=== PATIENT | female | born 1945 | race Caucasian/White ===

== ENCOUNTER 2016-08-18 14:43 | Outpatient (CLI) | payer MEDICARE, OTHER | END 2016-08-18 14:44 | disposition home or self-care (01) | DX: G47.33 Obstructive sleep apnea (adult) (pediatric) (principal) | CPT/HCPCS: 99214; G0463 ==

== ENCOUNTER 2016-08-27 13:40 | Outpatient (CLI) | payer MEDICARE, OTHER | END 2016-08-27 13:41 | disposition home or self-care (01) | DX: Z12.31 Encounter for screening mammogram for malignant neoplasm of breast (principal) ==

== ENCOUNTER 2016-11-17 11:13 | Outpatient (CLI) | payer MEDICARE, OTHER | END 2016-11-17 11:14 | disposition home or self-care (01) | DX: G47.33 Obstructive sleep apnea (adult) (pediatric) (principal) | CPT/HCPCS: 99214; G0463 ==

== ENCOUNTER 2017-06-07 08:44 | Outpatient (CLI) | payer MEDICARE, OTHER | END 2017-06-07 08:45 | disposition home or self-care (01) | LOC: SC 08:44 | PROVIDERS: ATTEND Nurse Practitioner Family | DX: G47.33 Obstructive sleep apnea (adult) (pediatric) (principal); G47.00 Insomnia, unspecified | CPT/HCPCS: 99214; G0463; 99212 ==

== ENCOUNTER 2017-08-13 09:21 | Outpatient (CLI) | payer MEDICARE, OTHER ==
[2017-08-13 10:23] LABS: ALBUMIN 4.5 g/dL (3.2-5.5); ALBUMIN/GLOBULIN RATIO 1.5 (1.0-2.2); BILIRUBIN,TOTAL 0.5 mg/dL (0.2-1.0); CREATININE 0.6 mg/dL (0.4-1.0); TOTAL PROTEIN 7.5 g/dL (6.7-8.2)
[2017-08-14 13:46] LABS: HEPATITIS C ANTIBODY NON-REACTIVE (NON-REACTIVE)
--- NOTE | 2017-08-19 09:12 | DEXA Report ---
DATE OF SERVICE: 08/13/2017 DEXA SCAN: 08/13/2017 CLINICAL INDICATION: Postmenopausal. TECHNIQUE: Dual energy x-ray absorptiometry (DXA) was performed on a [employer] system. Regions measured are the AP spine, femoral neck, and, if needed, forearm. COMPARISON: None. In accordance with the International Society for Clinical Densitometry (ISCD) guidelines, data from previous exams may be reanalyzed using current recommendations and techniques. This is done to allow a more accurate basis for comparison with the current study. FINDINGS: The data for the lumbar spine is as follows: REGION BMD (g/cm/cm) T-SCORE Z-SCORE L1 0.932 -1.6 0.4 L2 0.956 -2.0 0.0 L3 0.942 -2.2 -0.1 L4 1.028 -1.4 0.6 TOTAL 0.969 -1.8 0.3 NOTE: All evaluable vertebrae are used for classification. The data for the hip is as follows: REGION BMD (g/cm/cm) T-SCORE Z-SCORE Neck 0.792 -1.8 0.2 TOTAL 0.834 -1.4 0.4 NOTE: The femoral neck or total proximal femur, whichever is lowest, is used for classification. IMPRESSION: THE WHO CLASSIFICATION BASED ON THE INTERNATIONAL REFERENCE STANDARD IS OSTEOPENIA. THE FRACTURE RISK IS INCREASED. RECOMMENDATION: Patients with diagnosis of osteoporosis or osteopenia should have regular bone mineral density assessment. For those eligible for Medicare, routine testing is allowed once every 2 years. Testing frequency can be increased for patients who have rapidly progressing disease or for those who are receiving medical therapy to restore bone mass. COMMENT: World Health Organization (WHO) definitions for osteoporosis and osteopenia: NORMAL BMD: T-score at 1.0 or higher, fracture risk is low. OSTEOPENIA BMD: T-score between 1.0 and -2.5, fracture risk is increased. OSTEOPOROSIS BMD: T-score at 2.5 or lower, fracture risk high. National Osteoporosis Foundation recommends 1. Obtain adequate dietary calcium (at least 1200 mg per day) and vitamin D (400 -800 international units per day). 2. Participate, as appropriate, in regular weightbearing and muscle- strengthening exercise. 3. Avoid tobacco use and reduce alcohol and caffeine intake. 4. For more detailed information see the website at www.NOF.org. TD: 08/13/2017 13:07 MTDNani
== END 2017-08-13 09:22 | disposition home or self-care (01) ==
LOC: DI 09:21
PROVIDERS: ATTEND Physician Assistant
DX: M81.0 Age-related osteoporosis without current pathological fracture (principal); Z78.0 Asymptomatic menopausal state
CPT/HCPCS: 36415; 77080; 80053; 86803

== ENCOUNTER 2018-08-03 10:56 | Outpatient (CLI) | payer MEDICARE, OTHER | END 2018-08-03 10:57 | disposition home or self-care (01) | LOC: SC 10:56 | PROVIDERS: ATTEND Nurse Practitioner Family | DX: G47.33 Obstructive sleep apnea (adult) (pediatric) (principal) | CPT/HCPCS: 99213; G0463; 99212 ==

== ENCOUNTER 2018-08-17 07:28 | Outpatient (CLI) | payer MEDICARE, OTHER ==
[2018-08-17 07:52] LABS: HGB - HEMOGLOBIN 13.2 g/dL (12.0-16.0); MEAN CORPUSCULAR HEMOGLOBIN 31.7 pg (27.0-31.0); MEAN CORPUSCULAR HGB CONC 33.9 g/dL (32.0-36.0); MEAN CORPUSCULAR VOLUME 93.6 fL (81.0-99.0); RED BLOOD COUNT 4.17 10^6/uL (4.20-5.40); RED CELL DISTRIBUTION WIDTH 13.2 % (12.0-15.0); WHITE BLOOD COUNT 5.1 x10^3/uL (4.8-10.8)
[2018-08-17 08:10] LABS: ALBUMIN 4.4 g/dL (3.2-5.5); ALBUMIN/GLOBULIN RATIO 1.4 (1.0-2.2); ALKALINE PHOSPHATASE 51 IU/L (42-121); ALT ALANINE AMINOTRANSFERASE 16 IU/L (10-60); AST ASPARTATE AMINOTRANSFERASE 19 IU/L (10-42); BILIRUBIN,TOTAL 0.7 mg/dL (0.2-1.0); BUN - BLOOD UREA NITROGEN 12 mg/dL (6-20); CARBON DIOXIDE - CO2 27 mmol/L (21-32); CHLORIDE 95 mmol/L (101-111); CHOL/HDL RATIO 2.1 (<4.4); CHOLESTEROL 196 mg/dL; CREATININE 0.6 mg/dL (0.4-1.0); GFR - MDRD 98 (>89); GLUCOSE 102 mg/dL (70-100); HDL CHOLESTEROL 95 mg/dL; LDL CHOLESTEROL,CALCULATED 87 mg/dL; LDL/HDL RATIO 0.9 (<4.4); SODIUM 131 mmol/L (135-145); TOTAL PROTEIN 7.5 g/dL (6.7-8.2); VLDL CHOLESTEROL 14 mg/dL
== END 2018-08-17 07:29 | disposition home or self-care (01) ==
LOC: LAB 07:28
PROVIDERS: ATTEND Internal Medicine
DX: I10 Essential (primary) hypertension (principal); F41.1 Generalized anxiety disorder
CPT/HCPCS: 36415; 80053; 80061; 83721; 84443; 85027

== ENCOUNTER 2018-11-21 09:41 | Outpatient (CLI) | payer MEDICARE, OTHER ==
--- NOTE | 2018-11-22 09:07 | Mammography Report ---
Reason: SCREENING MAMMO Procedure Date: 11/21/2018 Accession Number: [id number] / [id number] Procedure: MAGEN - Screening Mammo w/Zay CPT Code: FULL RESULT: EXAM: Screening Mammo w/Zay DATE: 11/21/2018 10:21 AM CLINICAL HISTORY: Screening encounter. 20 year history of hormone therapy. TECHNIQUE: (B) - Bilateral CC, laterally exaggerated CC, MLO views were obtained. COMPARISON: 08/27/2016 through 12/02/2012. PARENCHYMAL PATTERN: (A) - The breast(s) demonstrate(s) scattered fibroglandular densities. FINDINGS: There is a coarse right breast, typically benign. There are no suspicious masses, calcifications, or areas of distortion. IMPRESSION: Benign findings. BI-RADS category 2. RECOMMENDATION: (ANNUAL) - Recommend routine annual screening mammography. BI-RADS CATEGORY: (2) - Benign Findings. STANDARD QUALIFYING STATEMENTS: 1. This examination was not reviewed with the aid of Computer-Aided Detection (CAD). 2. A negative or benign imaging report should not preclude biopsy if clinically suspicious findings are present. 3. Dense breasts may obscure an underlying neoplasm. 4. This examination was reviewed with the aid of 3D breast imaging (tomosynthesis).
== END 2018-11-21 09:42 | disposition home or self-care (01) ==
LOC: DI 09:41
DX: Z12.31 Encounter for screening mammogram for malignant neoplasm of breast (principal)
CPT/HCPCS: 77063; 77067

== ENCOUNTER 2019-08-30 10:36 | Outpatient (CLI) | payer MEDICARE, OTHER ==
--- NOTE | 2019-08-30 11:37 | SLEEP CARE CONSULTATION ---
Information from patient questionnaire entered by Lavern Crook. I have reviewed and concur with the information entered by Lavern Crook. This document represents the service I personally performed and the decisions made by me, Alisia Cole, RN, MSN, CARD DEALER. History of Present Illness Previous diagnosis: Mild (having problems getting supplies despite repeated attempts - would to transfer), Obstructive Sleep Apnea-Hypopnea Syndrome AHI: 12.3 Reason for follow up: annual (last seen 2019) Equipment type: CPAP Equipment obtained from: [facility] Mask style: Nasal (Air Fit N20) Mask brand: Resmed Backup mask available: Yes (old mask ) Last cushion change: 3 days ago CPAP Compliance Data - Data Reviewed with Patient Average duration of nightly device use: 6.95 Compliance rate %: 96.7 (180 days) Current pressure setting (cmH2O): 7 Humidity settin Heated hose settin Average residual AHI: 1.7 Average large leak: 2 min 12 sec Subjective Missed days of use due to: reports: other (reduced use of CPAP when unable to use battery long traveling ) Patient concerns: reports: air blowing in eyes (she thinks as was waking with right eye puffy and achy / itchy but less since started artificial tears, new mask and tightening headgear. ). denies: aerophagia, mask discomfort, mask leak noise, condensation in mask/hose, nasal congestion, dry mouth, nose, throat, epistaxis Observed to snore while using device: No Current pressure setting perceived as: comfortable On therapy, patient: reports: sleeping better, awakening more refreshed, being more awake and alert during the day, more rested overall. denies: drowsiness while driving Initial [place] Sleepiness Scale score: 9 Current [place] Sleepiness Scale score: 6 Allergies and Home Medications Known drug allergies: Yes (see list ) Home medication list reviewed: Yes (no changes from last annual ) Review of Systems Review of systems same as previous: Yes Physical Exam Blood Pressure: 150/70 (reports generally elevated in office but normal range at home ) Cuff size: regular Heart Rate: 66 O2 Saturation: 97 Height: 5 ft 3 in Weight: 126 lb 6.4 oz Body Mass Index: 22.4 BMI Classification: Healthy weight Impression and Plan 1. Obstructive Sleep Apnea-Hypopnea Syndrome, mild, with good treatment compliance and good apnea control. On CPAP therapy, the patient has better sleep quality and is more rested overall. For eye concerns, if due to mask leaks, a CPAP pillow may also benefit in addition to measures she has already implemented. This and other styles can be bought online. If continued eye concerns, she is to follow up with her eye doctor. When she is traveling in and no electricty, she can turn off the humidity and heated hose as shown so not to draw extra power yet buffer noise of CPAP use when using her CPAP battery. For patient supply concerns. Patient was notified that another DME can be used. I will have my asset management coordinator inform of DME options. A DWO prescription will then be made. Patient advised to contact this office if further supply problems. Patient's apnea severity and rationale for treatment to reduce apnea, improve sleep quality and reduce cardiovascular and cerebrovascular events was reviewed. I also reviewed the benefit of consistent device use of CPAP for hypertension. Blood pressure was slightly elevated today. Patient advised to monitor at home and if still elevated to contact her PCP with rationale discussed. She agreed with plan. * Continue CPAP pressure at 7cmH2O * Transfer to new DME * Consider CPAP pillow * Notify me if snoring with mask or feeling that the pressure is too much or too little * Call this office if any problems using CPAP * Return for follow up in 1 year , or sooner if concerns arise Time Spent with Patient (minutes): 30 I spent 100% of this visit face to face with the patient with greater than 50% of this was spent time counseling the patient and coordination of care.
[2019-08-30 11:38] VITALS: BP 150/70
== END 2019-08-30 10:37 | disposition home or self-care (01) ==
LOC: SC 10:36
PROVIDERS: ATTEND Nurse Practitioner Family
DX: G47.33 Obstructive sleep apnea (adult) (pediatric) (principal)
CPT/HCPCS: 99214; G0463; 99212

== ENCOUNTER 2020-01-31 15:14 | Outpatient (CLI) | payer MEDICARE, OTHER ==
--- NOTE | 2020-01-31 16:33 | DEXA Report ---
Reason: POST MENOPAUSAL Procedure Date: 01/31/2020 Accession Number: [id number] / [id number] Procedure: DEX - Dexa Spine and/or Hip CPT Code: Final Report FULL RESULT: PROCEDURE: Dexa Spine and/or Hip INDICATIONS: POST MENOPAUSAL TECHNIQUE: Dual energy x-ray absorptiometry (DXA) was performed on a [employer] System. Regions measured are the AP Spine, femoral neck, and if needed forearm. COMPARISON: None. FINDINGS: Lumbar Spine: Bone Mineral Density 0.969 g/cm/cm,T score -1.8, osteopenia Left Hip: Bone Mineral Density 0.869 g/cm/cm,T score -1.1, borderline osteopenia Left Femoral Neck: Bone Mineral Density 761 g/cm/cm, T score -2.0, moderate osteopenia (T score greater or equal to -1.0: NORMAL) (T score from -1.1 to -2.4: OSTEOPENIA) (T score less than or equal to -2.5 to: OSTEOPOROSIS) Impression: Borderline osteopenia within the left hip with moderate osteopenia in the lumbar spine and femoral neck. Patients with diagnosis of osteoporosis or osteopenia should have regular bone mineral density assessment. For those eligible for Medicare, routine testing is allowed once every 2 years. Testing frequency can be increased for patients who have rapidly progressing disease or for those who are receiving medical therapy to restore bone mass. Reviewed by: Telma Ramachandran MD on 01/31/2020 4:31 PM PDT Approved by: Telma Ramachandran MD on 01/31/2020 4:31 PM PDT Station ID: [id number]
[2020-02-01 12:45] LABS: HEPATITIS C ANTIBODY NON-REACTIVE (NON-REACTIVE)
== END 2020-01-31 15:15 | disposition home or self-care (01) ==
LOC: DI 15:14
PROVIDERS: ATTEND Internal Medicine
DX: M85.88 Other specified disorders of bone density and structure, other site (principal); M85.89 Other specified disorders of bone density and structure, multiple sites; Z11.59 Encounter for screening for other viral diseases
CPT/HCPCS: 36415; 77080; 86803

== ENCOUNTER 2020-01-31 15:15 | Outpatient (CLI) | payer MEDICARE, OTHER ==
--- NOTE | 2020-02-01 11:11 | Mammography Report ---
BILATERAL DIGITAL SCREENING MAMMOGRAM 3D/2D: 01/31/2020 CLINICAL: Routine screening. Comparison is made to exams dated: 11/21/2018 mammogram, 08/27/2016 mammogram, and 01/04/2015 mammogram - [facility]. There are scattered fibroglandular elements in both breasts. No significant masses, calcifications, or other findings are seen in either breast. There has been no significant interval change. IMPRESSION: NEGATIVE There is no mammographic evidence of malignancy. A 1 year screening mammogram is recommended. This exam was interpreted at Station ID: [id number]. NOTE: For mammograms, a report in lay terms will be sent to the patient. Approximately 15% of breast malignancies will not be visualized mammographically. In the management of a palpable breast mass, a negative mammogram must not discourage biopsy of a clinically suspicious lesion. Electronically Signed By: Binta pérez/dinorah:02/01/2020 10:14:43 ACR BI-RADS Category 1: Negative 3341F PARENCHYMAL PATTERN: (A) - The breast(s) demonstrate(s) scattered fibroglandular densities. BI-RADS CATEGORY: (1) - 1 RECOMMENDATION: (ANNUAL) - Recommend routine annual screening mammography. [id number] 1 year screening LATERALITY: (B)
== END 2020-01-31 15:16 | disposition home or self-care (01) ==
LOC: DI 15:15
PROVIDERS: ATTEND Internal Medicine
DX: Z12.31 Encounter for screening mammogram for malignant neoplasm of breast (principal)
CPT/HCPCS: 77063; 77067

== ENCOUNTER 2020-04-23 09:22 | Outpatient (CLI) | payer MEDICARE, OTHER ==
--- NOTE | 2020-04-23 10:06 | SLEEP CARE CONSULTATION ---
Information from patient questionnaire entered by Lavern Crook. I have reviewed and concur with the information entered by Lavern Crook. This document represents the service I personally performed and the decisions made by , Carina Gomez ARNP. History of Present Illness Service Date and Time: 04/23/2020921 Previous diagnosis: Mild, Obstructive Sleep Apnea-Hypopnea Syndrome AHI: 12.3 (in 2016) Reason for follow up: other (8 month, transfer DME) Equipment type: CPAP Equipment obtained from: [employer] (service has been subpar and not getting supplies) Mask style: Nasal pillows Mask brand: Resmed Backup mask available: Yes (old mask) Last cushion change: 2 weeks Prior sleep studies: Yes Year and Where: 2015 - [facility] Type of Sleep Study: Polysomnography HPI additional information: ZAID MAY was diagnosed to have mild, AHI 12.3, obstructive sleep apnea- hypopnea syndrome and returned today for CPAP therapy eight month follow-up. CPAP Compliance Data - Data Reviewed with Patient Average duration of nightly device use: 7.45 Compliance rate %: 98.9 (90 days) Current pressure setting (cmH2O): 7 Humidity settin Heated hose settin Average residual AHI: 2.5 Average large leak: 5 sec Subjective Patient concerns: reports: condensation in mask/hose (very minor in hose, using heated hose and adjusting as needed), other (eyes dry and puffy in the AM; using eye drops and vaseline prior to bedtime/CPAP use). denies: aerophagia, mask discomfort, air blowing in eyes, mask leak noise, nasal congestion, dry mouth, nose, throat, epistaxis Observed to snore while using device: No Current pressure setting perceived as: comfortable On therapy, patient: reports: sleeping better, awakening more refreshed, being more awake and alert during the day, more rested overall. denies: drowsiness while driving Initial [place] Sleepiness Scale score: 9 (in 2016) Current [place] Sleepiness Scale score: 2 Allergies and Home Medications Drug allergies reviewed: Yes (see chart) Home medication list reviewed: Yes (added generic Lexapro for 4 months) Review of Systems Review of systems same as previous: No (stress induced anxiety) Physical Exam Heart Rate: 78 O2 Saturation: 98 Height: 5 ft 3 in Weight: 123 lb Body Mass Index: 21.7 BMI Classification: Healthy weight Impression and Plan 1. Obstructive Sleep Apnea-Hypopnea Syndrome, mild, with good treatment compliance and good apnea control. On CPAP therapy, the patient has better sleep quality and is more rested overall. For patient supply concerns. Patient was informed that another DME can be used. I will have my communication coordinator inform of DME options. A DWO prescription will then be made. Patient advised to contact this office if further supply problems. Patient also has complaint of eye dryness/puffiness in AM but is unsure if her mask is leaking air in eyes and her compliance information does not reveal large mask air leaks. She has seen her eye doctor. She is using eye drop nightly with either Vaseline or erythromycin as well. I advised her that she could use a mask over her eyes as well to reduce any air blowing in her eyes (if any) but she did not think she would be able to use that comfortably. She will follow up as needed with her eye doctor or here if it becomes more problematic. Patient's apnea severity and rationale for treatment to reduce apnea, improve sleep quality and reduce cardiovascular and cerebrovascular events was reviewed. I also reviewed the benefit of consistent device use of CPAP for arrhythmia and anxiety. * Continue CPAP pressure at 7 cmH2O * Transfer DME * Notify me if snoring with mask or feeling that the pressure is too much or too little * Call this office if any problems using CPAP * Return for follow up in 1 year, or sooner if concerns arise Visit Type: In Office Time Spent with Patient (minutes): 26 Provider Statement: I spent 100% of the Face to Face Visit with the patient with greater than 50% spent counseling the patient and coordination of care.
== END 2020-04-23 09:23 | disposition home or self-care (01) ==
LOC: SC 09:22
PROVIDERS: ATTEND Nurse Practitioner Family
DX: G47.33 Obstructive sleep apnea (adult) (pediatric) (principal)
CPT/HCPCS: 99213; G0463; 99212

== ENCOUNTER 2020-12-04 08:29 | Outpatient (CLI) | payer MEDICARE, OTHER ==
[2020-12-04 08:52] LABS: HCT - HEMATOCRIT 36.8 % (37.0-47.0); HGB - HEMOGLOBIN 12.6 g/dL (12.0-16.0); MEAN CORPUSCULAR HEMOGLOBIN 31.9 pg (27.0-31.0); MEAN CORPUSCULAR HGB CONC 34.2 g/dL (32.0-36.0); MEAN CORPUSCULAR VOLUME 93.2 fL (81.0-99.0); MEAN PLATELET VOLUME 9.2 fL (7.9-10.8); RED BLOOD COUNT 3.95 10^6/uL (4.20-5.40); RED CELL DISTRIBUTION WIDTH 13.1 % (12.0-15.0); WHITE BLOOD COUNT 6.7 x10^3/uL (4.8-10.8)
[2020-12-04 09:09] LABS: ALBUMIN 4.5 g/dL (3.2-5.5); ALBUMIN/GLOBULIN RATIO 1.6 (1.0-2.2); ALKALINE PHOSPHATASE 56 IU/L (42-121); ALT ALANINE AMINOTRANSFERASE 19 IU/L (10-60); AST ASPARTATE AMINOTRANSFERASE 24 IU/L (10-42); BILIRUBIN,TOTAL 0.7 mg/dL (0.2-1.0); BUN - BLOOD UREA NITROGEN 13 mg/dL (6-20); CALCIUM 9.3 mg/dL (8.5-10.3); CARBON DIOXIDE - CO2 27 mmol/L (21-32); CHLORIDE 97 mmol/L (101-111); CHOL/HDL RATIO 2.3 (<4.4); CHOLESTEROL 212 mg/dL; CREATININE 0.6 mg/dL (0.4-1.0); GFR - MDRD 97 (>89); GLUCOSE 106 mg/dL (70-100); HDL CHOLESTEROL 93 mg/dL; LDL CHOLESTEROL,CALCULATED 105 mg/dL; LDL/HDL RATIO 1.1 (<4.4); POTASSIUM 3.7 mmol/L (3.5-5.0); SODIUM 133 mmol/L (135-145); TOTAL PROTEIN 7.4 g/dL (6.7-8.2); TRIGLYCERIDES 68 mg/dL; VLDL CHOLESTEROL 14 mg/dL
[2020-12-04 09:20] LABS: THYROID STIMULATING HORMONE 1.24 uIU/mL (0.34-5.60)
[2020-12-05 12:12] LABS: HEPATITIS C ANTIBODY NON-REACTIVE (NON-REACTIVE)
== END 2020-12-04 08:30 | disposition home or self-care (01) ==
LOC: LAB 08:29
PROVIDERS: ATTEND Internal Medicine
DX: I10 Essential (primary) hypertension (principal); Z11.59 Encounter for screening for other viral diseases; G47.33 Obstructive sleep apnea (adult) (pediatric); F41.1 Generalized anxiety disorder
CPT/HCPCS: 36415; 80053; 80061; 83721; 84443; 85027; 86803

== ENCOUNTER 2021-03-19 14:40 | Outpatient (CLI) | payer MEDICARE, OTHER ==
--- NOTE | 2021-03-19 15:03 | SLEEP CARE CONSULTATION ---
Information from patient questionnaire entered by Lavern Crook. I have reviewed and concur with the information entered by Lavern Crook. This document represents the service I personally performed and the decisions made by , Carina Gomez ARNP. History of Present Illness Service Date and Time: 03/19/2021 1440 Previous diagnosis: Mild, Obstructive Sleep Apnea-Hypopnea Syndrome AHI: 12.3 (in 2016) Reason for follow up: other (11 month) Equipment type: CPAP Equipment obtained from: [employer] (in [place]; getting supplies as needed) Mask style: Nasal Backup mask available: Yes (old mask) Last cushion change: Wednesday Prior sleep studies: Yes Year and Where: 2016 - [facility] HPI additional information: ZAID MAY was diagnosed to have mild, AHI 12.3, obstructive sleep apnea- hypopnea syndrome and returned today for CPAP therapy 11 month follow-up. CPAP Compliance Data - Data Reviewed with Patient Average duration of nightly device use: 7 hr 1 min Compliance rate %: 99.4 (180 days) Current pressure setting (cmH2O): 7 Humidity settin Heated hose settin Average residual AHI: 1.9 Average large leak: 21 sec Subjective Patient concerns: denies: aerophagia, mask discomfort, air blowing in eyes, mask leak noise, condensation in mask/hose, nasal congestion, dry mouth, nose, throat, epistaxis, other Observed to snore while using device: No Current pressure setting perceived as: comfortable On therapy, patient: reports: sleeping better, awakening more refreshed, being more awake and alert during the day, more rested overall. denies: drowsiness while driving Initial [place] Sleepiness Scale score: 9 (in 2016) Current [place] Sleepiness Scale score: 4 Allergies and Home Medications Home medication list reviewed: Yes (no changes) Review of Systems Review of systems same as previous: No (having some leaky bladder issues) Physical Exam Heart Rate: 67 O2 Saturation: 98 Height: 5 ft 3 in Weight: 121 lb 3.2 oz Body Mass Index: 21.4 BMI Classification: Healthy weight Impression and Plan 1. Obstructive Sleep Apnea-Hypopnea Syndrome, mild, with excellent treatment compliance and good apnea control. On CPAP therapy, the patient has better sleep quality and is more rested overall. Patient comes in concerned because her CPAP device is on the [employer] recall. She spoke with someone at [facility] in [place] who told her that they might be able to get her a new device early since she is eligible in July but they needed an order. Patient has already registered their device for the recall. Patient denies any black particles seen in machine or hoses, any unusual odors coming from device. Patient has not experienced any physical symptoms such as upper airway irritation, headache, skin or eye irritation, asthma, nausea/vomiting, difficulty breathing or chest pain. Patient informed that they may use an inline CPAP filter that they can obtain online to reduce chance of any particles being inhaled or ingested. We discussed thoroughly the health risks of not using the CPAP versus continuing use with the filter in place. If patient is not able to sleep due to waking up choking, gasping for air or other respiratory distress that they may decide to continue using it until it is either replaced or repaired. Patient voiced understanding and agreement with plan.Compliance guidelines for new device and follow up discussed. Patient's apnea severity and rationale for treatment to reduce apnea, improve sleep quality and reduce cardiovascular and cerebrovascular events was reviewed. I also reviewed the benefit of consistent device use of CPAP for arrhythmia and anxiety. * Continue auto CPAP pressure at 7 cmH2O * Update device * Notify me if snoring with mask or feeling that the pressure is too much or too little * Maintain a healthy weight * Call this office if any problems using CPAP * Return for follow up one month after obtaining device, or sooner if concerns arise Counseling Topics: Spare mask, Weight control Visit Type: In Office Time Spent with Patient (minutes): 21 Provider Statement: I spent 100% of the Face to Face Visit with the patient with greater than 50% spent counseling the patient and coordination of care.
== END 2021-03-19 14:41 | disposition home or self-care (01) ==
LOC: SC 14:40
PROVIDERS: ATTEND Nurse Practitioner Family
DX: G47.33 Obstructive sleep apnea (adult) (pediatric) (principal)
CPT/HCPCS: 99213; G0463; 99212

== ENCOUNTER 2021-04-23 09:20 | Outpatient (CLI) | payer MEDICARE, OTHER ==
--- NOTE | 2021-04-24 08:53 | Mammography Report ---
BILATERAL DIGITAL SCREENING MAMMOGRAM 3D/2D: 04/23/2021 CLINICAL: Routine screening. Comparison is made to exams dated: 01/31/2020 mammogram and 11/21/2018 mammogram - [facility]. There are scattered fibroglandular elements in both breasts. No significant masses, calcifications, or other findings are seen in either breast. There has been no significant interval change. IMPRESSION: NEGATIVE There is no mammographic evidence of malignancy. A 1 year screening mammogram is recommended. This exam was interpreted at Station ID: [id number]. NOTE: For mammograms, a report in lay terms will be sent to the patient. Approximately 15% of breast malignancies will not be visualized mammographically. In the management of a palpable breast mass, a negative mammogram must not discourage biopsy of a clinically suspicious lesion. Electronically Signed By: Binta pérez/penrad:04/23/2021 11:57:01 ACR BI-RADS Category 1: Negative 3341F PARENCHYMAL PATTERN: (A) - The breast(s) demonstrate(s) scattered fibroglandular densities. BI-RADS CATEGORY: (1) - 1 RECOMMENDATION: (ANNUAL) - Recommend routine annual screening mammography. [id number] 1 year screening LATERALITY: (B)
== END 2021-04-23 09:21 | disposition home or self-care (01) ==
LOC: DI 09:20
DX: Z12.31 Encounter for screening mammogram for malignant neoplasm of breast (principal)

== ENCOUNTER 2021-12-19 08:08 | Outpatient (CLI) | payer MEDICARE, OTHER ==
[2021-12-19 08:37] LABS: HCT - HEMATOCRIT 36.4 % (37.0-47.0); HGB - HEMOGLOBIN 11.8 g/dL (12.0-16.0); MEAN CORPUSCULAR HEMOGLOBIN 30.8 pg (27.0-31.0); MEAN CORPUSCULAR HGB CONC 32.4 g/dL (32.0-36.0); MEAN PLATELET VOLUME 9.3 fL (7.9-10.8); RED BLOOD COUNT 3.83 10^6/uL (4.20-5.40); RED CELL DISTRIBUTION WIDTH 13.3 % (12.0-15.0); WHITE BLOOD COUNT 5.2 x10^3/uL (4.8-10.8)
[2021-12-19 08:57] LABS: ALBUMIN 4.1 g/dL (3.2-5.5); ALBUMIN/GLOBULIN RATIO 1.3 (1.0-2.2); ALKALINE PHOSPHATASE 52 IU/L (42-121); ALT ALANINE AMINOTRANSFERASE 15 IU/L (10-60); AST ASPARTATE AMINOTRANSFERASE 20 IU/L (10-42); BILIRUBIN,TOTAL 0.4 mg/dL (0.2-1.0); BUN - BLOOD UREA NITROGEN 13 mg/dL (6-20); CALCIUM 8.8 mg/dL (8.5-10.3); CARBON DIOXIDE - CO2 26 mmol/L (21-32); CHLORIDE 98 mmol/L (101-111); CHOL/HDL RATIO 2.1 (<4.4); CHOLESTEROL 187 mg/dL; CREATININE 0.6 mg/dL (0.4-1.0); GFR - MDRD 97 (>89); GLUCOSE 101 mg/dL (70-100); HDL CHOLESTEROL 89 mg/dL; LDL CHOLESTEROL,CALCULATED 86 mg/dL; POTASSIUM 3.7 mmol/L (3.5-5.0); SODIUM 134 mmol/L (135-145); TOTAL PROTEIN 7.2 g/dL (6.7-8.2); TRIGLYCERIDES 58 mg/dL; VLDL CHOLESTEROL 12 mg/dL
[2021-12-19 09:08] LABS: THYROID STIMULATING HORMONE 2.07 uIU/mL (0.34-5.60)
== END 2021-12-19 08:09 | disposition home or self-care (01) ==
LOC: LAB 08:08
PROVIDERS: ATTEND Internal Medicine
DX: I10 Essential (primary) hypertension (principal); F41.1 Generalized anxiety disorder; L60.9 Nail disorder, unspecified
CPT/HCPCS: 36415; 80053; 80061; 81599; 83721; 84443; 85027

== ENCOUNTER 2022-01-01 10:00 | Outpatient (CLI) | payer MEDICARE, OTHER ==
[2022-01-01 10:38] VITALS: BP 123/79
--- NOTE | 2022-01-01 10:38 | SLEEP CARE CONSULTATION ---
Information from patient questionnaire entered by Justa Hoover MA. I have reviewed and concur with the information entered by Justa Hoover MA. This document represents the service I personally performed and the decisions made by , Carina Gomez ARNP. History of Present Illness Service Date and Time: 01/01/2022 1000 Previous diagnosis: Mild, Obstructive Sleep Apnea-Hypopnea Syndrome AHI: 12.3 (in 2015) Reason for follow up: first compliance (SET UP 11/15/2021, RESMED, ), first compliance after device update Equipment type: CPAP Equipment obtained from: [employer] (in [place]; getting supplies as needed) Mask style: Nasal Backup mask available: Yes (old mask) Last cushion change: 4 days ago Prior sleep studies: Yes Year and Where: 2015 - [facility] Sleep HPI additional information: ZAID MAY was diagnosed to have mild, AHI 12.3, obstructive sleep apnea- hypopnea syndrome and returned today for CPAP therapy first compliance after updating device follow-up. Sleep Study - Results Prior sleep studies: Yes Year and Where: 2015 - [facility] Sleep CPAP Compliance Data - Data Reviewed with Patient Average duration of nightly device use: 6 hours 43 minutes Compliance rate %: 100 (12/01/21 - 12/30/21, 30 days) Current pressure setting (cmH2O): 7 Average residual AHI: 0.8 Central apnea: .5 Obstructive apnea: .2 Hypopnea: .1 Average large leak: 8.1 Subjective Patient concerns: denies: aerophagia, mask discomfort, air blowing in eyes, mask leak noise, condensation in mask/hose, nasal congestion, dry mouth, nose, throat, epistaxis, other Observed to snore while using device: No Current pressure setting perceived as: comfortable On therapy, patient: reports: sleeping better, awakening more refreshed, being more awake and alert during the day, more rested overall. denies: drowsiness while driving Initial [place] Sleepiness Scale score: 9 (in 2015) Current [place] Sleepiness Scale score: 3 (11/2021) Allergies and Home Medications Home medication list reviewed: Yes (no changes) Allergy and home medication list: Allergies carisoprodol [From Soma] Allergy (Verified 09/07/14 12:06) Unknown doxycycline Allergy (Verified 09/07/14 12:06) Unknown Penicillins Allergy (Verified 09/07/14 12:06) Unknown prochlorperazine edisylate * [From Compazine] Allergy (Verified 09/07/14 12:06) Unknown prochlorperazine maleate * [From Compazine] Allergy (Verified 09/07/14 12:06) Unknown Sulfa (Sulfonamide Antibiotics) Allergy (Verified 09/07/14 12:06) Unknown Tetracyclines Allergy (Verified 09/07/14 12:06) Unknown Review of Systems Review of systems same as previous: Yes (no changes) Physical Exam Vital signs obtained and entered by: Shanel HOOVER CMA AAMA Blood Pressure: 123/79 (LEFT, RESP 16, PULSE 66) Cuff size: wrist Heart Rate: 68 O2 Saturation: 97 Height: 5 ft 3 in Weight: 122 lb Body Mass Index: 21.6 BMI Classification: Healthy weight Impression and Plan 1. Obstructive Sleep Apnea-Hypopnea Syndrome, mild, with good treatment compliance and good apnea control. On CPAP therapy, the patient has better sleep quality and is more rested overall. Patient denies problems with oral dryness, nasal congestion, epistaxis, skin irritation or aerophagia. Patient had questions about the humidifier. She states she has a battery backup for when traveling but is not sure how to not use the humidifier because it will drain the battery before the night is over. I instructed her to call [facility] to get advice on this and also advised her that she can turn the humidifier off when using the battery back up. She voiced understanding. Patient's apnea severity and rationale for treatment to reduce apnea, improve sleep quality and reduce cardiovascular and cerebrovascular events was reviewed. I also reviewed the benefit of consistent device use of CPAP for arrhythmia and anxiety. * Continue CPAP pressure at 7 cmH2O * Notify me if snoring with mask or feeling that the pressure is too much or too little * Maintain a healthy weight * Call this office if any problems using CPAP * Return for follow up in 1 year, or sooner if concerns arise Counseling Topics: Spare mask Visit Type: In Office Time Spent with Patient (minutes): 12 Provider Statement: I spent 100% of the Face to Face Visit with the patient with greater than 50% spent counseling the patient and coordination of care.
== END 2022-01-01 10:01 | disposition home or self-care (01) ==
LOC: SC 10:00
PROVIDERS: ATTEND Nurse Practitioner Family
DX: G47.33 Obstructive sleep apnea (adult) (pediatric) (principal)
CPT/HCPCS: 99212; G0463

== ENCOUNTER 2022-02-12 09:30 | Outpatient (CLI) | payer MEDICARE, OTHER ==
[2022-02-12 09:56] LABS: BASOPHILS % (AUTO) 0.6 %; EOSINOPHILS % (AUTO) 0.6 %; HCT - HEMATOCRIT 39.1 % (37.0-47.0); HGB - HEMOGLOBIN 13.2 g/dL (12.0-16.0); LYMPHOCYTES # (AUTO) 1.2 10^3/uL (1.5-3.5); LYMPHOCYTES % (AUTO) 24.5 %; MEAN CORPUSCULAR HEMOGLOBIN 31.8 pg (27.0-31.0); MEAN CORPUSCULAR HGB CONC 33.8 g/dL (32.0-36.0); MEAN CORPUSCULAR VOLUME 94.2 fL (81.0-99.0); MEAN PLATELET VOLUME 9.4 fL (7.9-10.8); MONOCYTES # (AUTO) 0.5 10^3/uL (0.0-1.0); MONOCYTES % (AUTO) 10.9 %; NEUTROPHILS # (AUTO) 3.1 10^3/uL (1.5-6.6); PLT - PLATELET COUNT 229 10^3/uL (130-450); RED BLOOD COUNT 4.15 10^6/uL (4.20-5.40); RED CELL DISTRIBUTION WIDTH 13.2 % (12.0-15.0); WHITE BLOOD COUNT 4.9 x10^3/uL (4.8-10.8)
[2022-02-12 10:38] LABS: % IRON SATURATION 31 % (20-50); IRON 125 ug/dL (28-170); TOTAL IRON BINDING CAPACITY 409 ug/dL (250-450); TRANSFERRIN 292 mg/dL (192-382)
== END 2022-02-12 09:31 | disposition home or self-care (01) ==
LOC: LAB 09:30
PROVIDERS: ATTEND Internal Medicine
DX: D64.9 Anemia, unspecified (principal)
CPT/HCPCS: 36415; 82607; 83540; 84466; 85025

== ENCOUNTER 2022-04-28 15:07 | Outpatient (CLI) | payer MEDICARE, OTHER ==
--- NOTE | 2022-04-29 10:28 | Mammography Report ---
BILATERAL DIGITAL SCREENING MAMMOGRAM 3D/2D: 04/28/2022 CLINICAL: Routine screening. Comparison is made to exams dated: 04/23/2021 mammogram, 01/31/2020 mammogram, 11/21/2018 mammogram, 08/03 mammogram, and 01/04/2015 mammogram - [facility]. There are scattered areas of fibroglandular density in both breasts (category b / 25%-50% glandular t issue). No significant masses, calcifications, or other findings are seen in either breast. There has been no significant interval change. IMPRESSION: NEGATIVE There is no mammographic evidence of malignancy. A 1 year screening mammogram is recommended. Based on the Tyrer Cuzick model (a risk assessment model) the patients lifetime risk is 2.4% and her 10 year risk is 0.0%. According to the ACR, ACS, and NCCN guidelines, an annual breast MRI exam torres g with mammogram is recommended if the patients lifetime risk is 20% or greater. This exam was interpreted at Station ID: [id number]. NOTE: For mammograms, a report in lay terms will be sent to the patient. Approximately 15% of breast malignancies will not be visualized mammographically. In the management of a palpable breast mass, a negative mammogram must not discourage biopsy of a clinically suspicious lesion. Electronically Signed By: Sukhwinder coreas/dinorah:04/29/2022 07:16:38 ACR BI-RADS Category 1: Negative 3341F PARENCHYMAL PATTERN: (A) - The breast(s) demonstrate(s) scattered fibroglandular densities. BI-RADS CATEGORY: (1) - 1 RECOMMENDATION: (ANNUAL) - Recommend routine annual screening mammography. [id number] 1 year screening LATERALITY: (B)
== END 2022-04-28 15:08 | disposition home or self-care (01) ==
LOC: DI 15:07
PROVIDERS: ATTEND Internal Medicine
DX: Z12.31 Encounter for screening mammogram for malignant neoplasm of breast (principal)

== ENCOUNTER 2022-06-01 11:00 | Outpatient (CLI) | payer MEDICARE, OTHER ==
--- NOTE | 2022-06-01 13:46 | DEXA Report ---
REVISED: THIS REPORT WAS ORIGINALLY SIGNED ON 06/01/2022 1:44 PM. REPORT MOVED TO CORRECT ACCOUNT ON 07/22/2022. PROCEDURE: Dexa Spine and/or Hip INDICATIONS: POST MENOPAUSAL TECHNIQUE: Densitometry lumbar spine and left hip was acquired. COMPARISON: Machine calculated comparison was made to 01/04/2015. Subjective comparison made to 01/31/2020 FINDINGS: Lumbar spine bone mineral density 0.990 g/sq cm, T score -1.6, osteopenia, change from previous 10.5%, significant Total left hip bone mineral density 0.832 g/sq cm, T score -1.4, osteopenia, change from previous -1.9% Left femoral neck bone mineral density 0.769 g/sq cm, T score -1.9, osteopenia IMPRESSION: 1. Osteopenia elevates the patient's 10 year fracture risk. 2. Significant interval increase in lumbar spine bone mineral density compared to 2014. This may be secondary to degenerative sclerosis. 3. Improvement in T score of the lumbar spine compared to 2020 (previously -1.8, now -1.6). 4. Improvement in the left femoral neck bone mineral density compared to 2020 (previously -2.0, now -1.9). 5. Decreased T score in the total left hip bone mineral density compared to 2020 (previously -1.1, now -1.4). Reviewed by: Binta Bowens MD on 06/01/2022 1:44 PM PDT Approved by: Binta Bowens MD on 06/01/2022 1:44 PM PDT Station ID: [id number]
== END 2022-06-01 15:00 | disposition home or self-care (01) ==
LOC: DI 11:00
PROVIDERS: ATTEND Internal Medicine
DX: M85.89 Other specified disorders of bone density and structure, multiple sites (principal); Z78.0 Asymptomatic menopausal state

== ENCOUNTER 2022-12-30 11:03 | Outpatient (CLI) | payer MEDICARE, OTHER ==
--- NOTE | 2022-12-30 11:42 | Sleep Patient Instructions ---
Sleep Center Visit Summary - Patient Visit Information Reason for Visit: Annual visit for PAP therapy - Patient Instructions Additional Instructions: You will continue with CPAP therapy with pressure set at 7 cmH2O. A supply prescription will be updated with your DME. Please follow up with the sleep care office in 1 year. - Clinic Information Contact: [facility] [address] [place] [address] [email or web address] T: [phone]
--- NOTE | 2022-12-30 11:44 | SLEEP CARE CONSULTATION ---
Information from patient questionnaire entered by Rama Prescott. I have reviewed and concur with the information entered by Rama Prescott. This document represents the service I personally performed and the decisions made by , Carina Gomez ARNP. History of Present Illness Service Date and Time: 12/30/2022 1103 Previous diagnosis: Mild, Obstructive Sleep Apnea-Hypopnea Syndrome AHI: 12.3 (in 2015) Reason for follow up: annual (LAST SEEN 12/2021) Equipment type: CPAP (ResMed Airsense 11, 10/2021) Equipment obtained from: [employer] (in [place]; getting supplies as needed) Mask style: Nasal Mask brand: Resmed (N20) Backup mask available: Yes (old mask) Last cushion change: 1 month Prior [facility]: Yes [facility]PI additional information: ZAID MAY was diagnosed to have mild, AHI 12.4, obstructive sleep apnea- hypopnea syndrome and returned today for CPAP therapy annual follow-up. Sleep Study - Results Prior sleep studies: Yes Year and Where: 2015 - [facility] Sleep CPAP Compliance Data - Data Reviewed with Patient Average duration of nightly device use: 7 HRS 1 MIN Compliance rate %: 97 (07/02/22-; 179/180 days used) Current pressure setting (cmH2O): 7 Average residual AHI: 1.1 Central apnea: 0.2 Obstructive apnea: 0.7 Subjective Patient concerns: denies: aerophagia, mask discomfort, air blowing in eyes, mask leak noise, condensation in mask/hose, nasal congestion, dry mouth, nose, throat, epistaxis Observed to snore while using device: No Current pressure setting perceived as: comfortable On therapy, patient: reports: sleeping better, awakening more refreshed, being more awake and alert during the day, more rested overall. denies: drowsiness while driving Initial [place] Sleepiness Scale score: 9 (in 2015) Current [place] Sleepiness Scale score: 3 (12/30/22) Allergies and Home Medications Known drug allergies: Yes (as listed) Drug allergies reviewed: Yes Home medication list reviewed: Yes (no changes) Allergy and home medication list: Allergies carisoprodol [From Soma] Allergy (Verified 12/29/22 14:56) Unknown doxycycline Allergy (Verified 12/29/22 14:56) Unknown Penicillins Allergy (Verified 12/29/22 14:56) Unknown prochlorperazine edisylate * [From Compazine] Allergy (Verified 12/29/22 14:56) Unknown prochlorperazine maleate * [From Compazine] Allergy (Verified 12/29/22 14:56) Unknown Sulfa (Sulfonamide Antibiotics) Allergy (Verified 12/29/22 14:56) Unknown Tetracyclines Allergy (Verified 12/29/22 14:56) Unknown Review of Systems Review of systems same as previous: Yes (no changes) Physical Exam Vital signs obtained and entered by: RAMA Russell MA Blood Pressure: 122/68 (LEFT ARM) Cuff size: regular Heart Rate: 59 O2 Saturation: 99 Height: 5 ft 3 in Weight: 128 lb 6.4 oz Body Mass Index: 22.7 BMI Classification: Normal Impression and Plan 1. Obstructive Sleep Apnea-Hypopnea Syndrome, mild, with good treatment c ompliance and good apnea control. On CPAP therapy, the patient has better sleep quality and is more rested overall. Patient has significant improvement of their sleep apnea and is satisfied with current CPAP therapy. Patient denies problems with oral dryness, nasal congestion, epistaxis, skin irritation or aerophagia. Patient's apnea severity and rationale for treatment to reduce apnea, improve sleep quality and reduce cardiovascular and cerebrovascular events was reviewed. I also reviewed the benefit of consistent device use of CPAP for arrhythmia and anxiety. * Continue CPAP pressure at 7 cmH2O * Update supplies * Notify me if snoring with mask or feeling that the pressure is too much or too little * Call this office if any problems using CPAP * Return for follow up in 1 year, or sooner if concerns arise Counseling Topics: Spare mask Visit Type: In Office Time Spent with Patient (minutes): 12 Provider Statement: I spent 100% of the Face to Face Visit with the patient with greater than 50% spent counseling the patient and coordination of care.
[2022-12-30 11:48] VITALS: BP 122/68
== END 2022-12-30 11:04 | disposition home or self-care (01) ==
LOC: SC 11:03
PROVIDERS: ATTEND Nurse Practitioner Family
DX: G47.33 Obstructive sleep apnea (adult) (pediatric) (principal)
CPT/HCPCS: 99213; G0463; 99212

== ENCOUNTER 2023-12-31 07:28 | Outpatient (CLI) | payer MEDICARE, OTHER ==
[2023-12-31 07:39] LABS: BASOPHILS # (AUTO) 0.1 10^3/uL (0.0-0.1); BASOPHILS % (AUTO) 0.8 %; EOSINOPHILS # (AUTO) 0.1 10^3/uL (0.0-0.7); EOSINOPHILS % (AUTO) 0.9 %; HCT - HEMATOCRIT 40.5 % (37.0-47.0); HGB - HEMOGLOBIN 12.4 g/dL (12.0-16.0); LYMPHOCYTES # (AUTO) 1.6 10^3/uL (1.5-3.5); LYMPHOCYTES % (AUTO) 21.6 %; MEAN CORPUSCULAR HEMOGLOBIN 30.4 pg (27.0-31.0); MEAN CORPUSCULAR HGB CONC 30.6 g/dL (32.0-36.0); MEAN CORPUSCULAR VOLUME 99.3 fL (81.0-99.0); MEAN PLATELET VOLUME 9.4 fL (7.9-10.8); MONOCYTES # (AUTO) 0.6 10^3/uL (0.0-1.0); MONOCYTES % (AUTO) 8.6 %; NEUTROPHILS % (AUTO) 67.7 %; PLT - PLATELET COUNT 215 10^3/uL (130-450); RED BLOOD COUNT 4.08 10^6/uL (4.20-5.40); RED CELL DISTRIBUTION WIDTH 13.4 % (12.0-15.0); WHITE BLOOD COUNT 7.4 x10^3/uL (4.8-10.8)
[2023-12-31 08:06] LABS: ALBUMIN 4.6 g/dL (3.2-5.5); ALBUMIN/GLOBULIN RATIO 1.6 (1.0-2.2); ALKALINE PHOSPHATASE 62 IU/L (42-121); ALT ALANINE AMINOTRANSFERASE 13 IU/L (10-60); AST ASPARTATE AMINOTRANSFERASE 18 IU/L (10-42); BILIRUBIN,TOTAL 0.5 mg/dL (0.2-1.0); BUN - BLOOD UREA NITROGEN 15 mg/dL (6-20); CALCIUM 9.7 mg/dL (8.5-10.3); CARBON DIOXIDE - CO2 28 mmol/L (21-32); CHLORIDE 101 mmol/L (101-111); CHOL/HDL RATIO 2.4 (<4.4); CHOLESTEROL 207 mg/dL; CREATININE 0.7 mg/dL (0.6-1.3); GFR - MDRD 81 (>89); GLUCOSE 101 mg/dL (74-104); HDL CHOLESTEROL 88 mg/dL; LDL CHOLESTEROL,CALCULATED 102 mg/dL; LDL/HDL RATIO 1.2 (<4.4); POTASSIUM 3.9 mmol/L (3.5-4.5); SODIUM 132 mmol/L (135-145); TOTAL PROTEIN 7.4 g/dL (6.4-8.9); TRIGLYCERIDES 83 mg/dL (48-352); VLDL CHOLESTEROL 17 mg/dL
[2023-12-31 08:12] LABS: THYROID STIMULATING HORMONE 1.87 uIU/mL (0.34-5.60)
== END 2023-12-31 07:29 | disposition home or self-care (01) ==
LOC: LAB 07:28
PROVIDERS: ATTEND Internal Medicine
DX: I10 Essential (primary) hypertension (principal); F41.1 Generalized anxiety disorder; Z11.59 Encounter for screening for other viral diseases
CPT/HCPCS: 36415; 80053; 80061; 83721; 84443; 85025; 85027

== ENCOUNTER 2023-12-31 07:30 | Outpatient (CLI) | payer MEDICARE, OTHER ==
--- NOTE | 2024-01-03 09:33 | Mammography Report ---
BILATERAL DIGITAL SCREENING MAMMOGRAM 3D/2D: 12/31/2023 CLINICAL: Routine screening. Comparison is made to exams dated: 04/28/2022 mammogram, 04/23/2021 mammogram, 01/31/2020 mammogram, 11/01 mammogram, 08/27/2016 mammogram, and 01/04/2015 mammogram - [facility]. There are scattered areas of fibroglandular density in both breasts (category b / 25%-50% glandular t issue). No significant masses, calcifications, or other findings are seen in either breast. There has been no significant interval change. IMPRESSION: NEGATIVE There is no mammographic evidence of malignancy. A 1 year screening mammogram is recommended. Based on the Tyrer Cuzick model (a risk assessment model) the patient's lifetime risk is 1.8% and her 10 year risk is 0.0%. According to the ACR, ACS, and NCCN guidelines, an annual breast MRI exam torres g with mammogram is recommended if the patient's lifetime risk is 20% or greater. This exam was interpreted at Station ID: [id number]. NOTE: For mammograms, a report in lay terms will be sent to the patient. Approximately 15% of breast malignancies will not be visualized mammographically. In the management of a palpable breast mass, a negative mammogram must not discourage biopsy of a clinically suspicious lesion. Electronically Signed By: Skyler steen/dinorah:12/31/2023 12:58:10 letter sent: No_Letter ACR BI-RADS Category 1: Negative 3341F PARENCHYMAL PATTERN: (A) - The breast(s) demonstrate(s) scattered fibroglandular densities. BI-RADS CATEGORY: (1) - 1 RECOMMENDATION: (ANNUAL) - Recommend routine annual screening mammography. [id number] 1 year screening LATERALITY: (B)
== END 2023-12-31 07:31 | disposition home or self-care (01) ==
LOC: DI 07:30
DX: Z12.31 Encounter for screening mammogram for malignant neoplasm of breast (principal); R92.323 Mammographic fibroglandular density, bilateral breasts

== ENCOUNTER 2023-12-31 10:33 | Outpatient (CLI) | payer MEDICARE, OTHER ==
--- NOTE | 2023-12-31 10:52 | Sleep Patient Instructions ---
Sleep Center Visit Summary - Patient Visit Information Reason for Visit: Annual follow-up - Patient Instructions Additional Instructions: You will continue with CPAP therapy with pressure set at 7 cmH2O. A supply prescription will be updated with your DME. Please follow up with the sleep care office in 1 year. - Clinic Information Contact: [facility] [address] [place] [address] [email or web address] T: [phone]
--- NOTE | 2023-12-31 10:55 | SLEEP CARE CONSULTATION ---
Information from patient questionnaire entered by Rama Prescott. I have reviewed and concur with the information entered by Rama Prescott. This document represents the service I personally performed and the decisions made by , Carina Gomez ARNP. History of Present Illness Service Date and Time: 12/31/2023 1033 Previous diagnosis: Mild, Obstructive Sleep Apnea-Hypopnea Syndrome AHI: 12.3 (in 2015) Reason for follow up: annual (LAST SEEN 11/2022) Equipment type: CPAP (ResMed Airsense 11, 10/2021) Equipment obtained from: [employer] (in [place]; getting supplies as needed) Mask style: Nasal (over the nose) Backup mask available: Yes Last cushion change: 2-3 weeks Prior sleep [facility]: Yes [facility] HPI additional information: ZAID MAY was diagnosed to have mild, AHI 12.3, obstructive sleep apnea- hypopnea syndrome and returned today for CPAP therapy annual follow-up. Sleep Study - Results Prior sleep studies: Yes Year and Where: 2015 - [facility] Sleep CPAP Compliance Data - Data Reviewed with Patient Average duration of nightly device use: 6 HRS 57 MINS Compliance rate %: 99 (12/29/22-12/28/23; 365/365 days used) Current pressure setting (cmH2O): 7 Average residual AHI: 0.8 Central apnea: 0.2 Obstructive apnea: 0.4 Hypopnea: 0.2 Average large leak: 0.1 L/min Subjective Patient concerns: denies: aerophagia, mask discomfort, air blowing in eyes, mask leak noise, condensation in mask/hose, nasal congestion, dry mouth, nose, throat, epistaxis Observed to snore while using device: No Current pressure setting perceived as: comfortable On therapy, patient: reports: sleeping better, awakening more refreshed, being more awake and alert during the day, more rested overall. denies: drowsiness while driving Initial [place] Sleepiness Scale score: 9 (in 2016) Current [place] Sleepiness Scale score: 5 Allergies and Home Medications Known drug allergies: Yes (as listed) Drug allergies reviewed: Yes Home medication list reviewed: Yes (increased Metoprolol to 25 mg) Allergy and home medication list: Allergies carisoprodol [From Soma] Allergy (Verified 12/29/23 11:25) Unknown doxycycline Allergy (Verified 12/29/23 11:25) Unknown Penicillins Allergy (Verified 12/29/23 11:25) Unknown prochlorperazine edisylate * [From Compazine] Allergy (Verified 12/29/23 11:25) Unknown prochlorperazine maleate * [From Compazine] Allergy (Verified 12/29/23 11:25) Unknown Sulfa (Sulfonamide Antibiotics) Allergy (Verified 12/29/23 11:25) Unknown Tetracyclines Allergy (Verified 12/29/23 11:25) Unknown Review of Systems Review of systems same as previous: No (cataract surgery on December 01 & 2023) Physical Exam Vital signs obtained and entered by: CARINA OWEN-C Blood Pressure: 160/86 (has white coat) Cuff size: regular (right arm) Heart Rate: 72 O2 Saturation: 98 Height: 5 ft 3 in Weight: 128 lb 9.6 oz Body Mass Index: 22.8 BMI Classification: Normal Impression and Plan 1. Obstructive Sleep Apnea-Hypopnea Syndrome, mild, with good treatment compliance and good apnea control. On CPAP therapy, the patient has better sleep quality and is more rested overall. She has no issues with using her CPAP and has significant improvement of her sleep apnea. Patient denies problems with oral dryness, nasal congestion, epistaxis, skin irritation or aerophagia. Patient's apnea severity and rationale for treatment to reduce apnea, improve sleep quality and reduce cardiovascular and cerebrovascular events was reviewed. I also reviewed the benefit of consistent device use of CPAP for arrhythmia, anxiety. * Continue CPAP pressure at 7 cmH2O * Update supply prescription. * Notify me if snoring with mask or feeling that the pressure is too much or too little * Call this office if any problems using CPAP * Return for follow up in 12 months, or sooner if concerns arise Counseling Topics: Spare mask Prescriptions: Device supplies Follow up with Sleep Care in: 1 year Visit Type: In Office Time Spent with Patient (minutes): 20 Provider Statement: I spent 100% of the Face to Face Visit with the patient with greater than 50% spent counseling the patient and coordination of care.
[2023-12-31 10:58] VITALS: BP 160/86; O2SAT 98
== END 2023-12-31 10:34 | disposition home or self-care (01) ==
LOC: SC 10:33
PROVIDERS: ATTEND Nurse Practitioner Family
DX: G47.33 Obstructive sleep apnea (adult) (pediatric) (principal); I10 Essential (primary) hypertension; F41.1 Generalized anxiety disorder; Z11.59 Encounter for screening for other viral diseases
CPT/HCPCS: 36415; 80053; 80061; 84443; 85027; 99213; G0463; 83721; 85025; 99212

== ENCOUNTER 2024-01-12 01:51 | Outpatient (CLI) | payer MEDICARE, OTHER | END 2024-01-12 23:59 | disposition EMS.NT | LOC: EMS 01:51 | DX: R20.0 Anesthesia of skin (principal); I10 Essential (primary) hypertension ==

== ENCOUNTER 2024-01-12 02:43 | Emergency (ER) | payer MEDICARE, OTHER ==
[2024-01-12 03:06] VITALS: O2SAT 97
--- NOTE | 2024-01-12 03:46 | ED Physician Documentation ---
History of Present Illness - Stated complaint Stated Complaint: HIGH BP - Chief complaint Chief Complaint: Cardiac - History obtained from History obtained from: Patient - Additonal information Additional information: HPI from patient. RODGER. Patient woke at approximately 2 AM this morning with "Both of my hands felt very achy" (Per patient), mostly left hand which spread in area of symptom (aching) to involve the entire LUE. She denies chest pain, dyspnea. She says that she briefly had BUE (hand) paresthesias, but this resolve within less than a minute and occurred while EMS was evaluating her on scene. Denies h/o similar symptoms, denies chest pain. No exacerbating nor ameliorating factors. Denies weakness, visual changes, headache. Review of Systems Constitutional: denies: Fever, Chills, Sweats Eyes: reports: Reviewed and negative Cardiac: reports: Reviewed and negative Respiratory: reports: Reviewed and negative GI: reports: Reviewed and negative Musculoskeletal: reports: Extremity pain. denies: Neck pain, Back pain, Joint pain, Extremity swelling, Joint swelling Neurologic: reports: Numbness (resolved). denies: Generalized weakness, Focal weakness PD PAST MEDICAL HISTORY - Past Medical History Cardiovascular: Hypertension Psych: Anxiety - Past Surgical History Past Surgical History: No HEENT: Cataracts - Present Medications Home Medications: Ambulatory Orders Medication Instructions Recorded Confirmed Acyclovir 400 mg PO BID 01/12/24 01/12/24 Alprazolam [Xanax] 0.25 mg PO DAILY 01/12/24 01/12/24 Metoprolol Succinate [Toprol Xl] 25 mg PO DAILY 01/12/24 01/12/24 - Allergies Allergies/Adverse Reactions: Allergies Allergy/AdvReac Type Severity Reaction Status Date / Time carisoprodol [From Soma] Allergy Unknown Verified 01/12/24 03:01 doxycycline Allergy Unknown Verified 01/12/24 03:01 Penicillins Allergy Unknown Verified 01/12/24 03:01 prochlorperazine edisylate * Allergy Unknown Verified 01/12/24 03:01 [From Compazine] prochlorperazine maleate * Allergy Unknown Verified 01/12/24 03:01 [From Compazine] Sulfa (Sulfonamide Allergy Unknown Verified 01/12/24 03:01 Antibiotics) Tetracyclines Allergy Unknown Verified 01/12/24 03:01 - Social History Does the pt smoke?: No Smoking Status: Never smoker Does the pt drink ETOH?: Yes Does the pt have substance abuse?: No - POLST Patient has POLST: No PD ED PE NORMAL - Vitals Vital signs reviewed: Yes - General General: Alert and oriented X 3, No acute distress, Well developed/nourished - Cardiac Cardiac: RRR, No murmur, No gallop, No rub - Respiratory Respiratory: No respiratory distress, Clear bilaterally - Abdomen Abdomen: Soft, Non tender - Extremities Extremities: No deformity, No tenderness to palpate, Normal ROM s pain - Neuro Neuro: Alert and oriented X 3, 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 Relevant findings are: Rate: Rate (enter#) (68) Rhythm: NSR [place]: Normal Intervals: Normal [place] QRS: Normal Ischemia: Normal ST segments Other comments: Other comments (RSR' V1, V2) - Labs Labs: Laboratory Tests 01/12/24 01/12/24 03:10 03:10 WBC 5.6 RBC 3.97 L Hgb 12.4 Hct 37.4 MCV 94.2 MCH 31.2 H MCHC 33.2 RDW 13.3 Plt Count 264 MPV 9.2 Neut # (Auto) 3.4 Lymph # (Auto) 1.4 L [place] # (Auto) 0.6 Eos # (Auto) 0.1 Baso # (Auto) 0.0 Absolute Nucleated RBC 0.00 Nucleated RBC % 0.0 Sodium 132 L Potassium 3.6 Chloride 99 L Carbon Dioxide 26 Anion Gap 7.0 BUN 15 Creatinine 0.7 Estimated GFR (MDRD) 81 L Glucose 105 H Calcium 9.1 Total Bilirubin 0.3 AST 17 ALT 12 Alkaline Phosphatase 65 Troponin I High Sens 2.9 Total Protein 7.4 Albumin 4.5 Globulin 2.9 Albumin/Globulin Ratio 1.6 Lipase 39 - Rads (name of study) chest xray Relevant Findings:: Prelim report reviewed, See rad report PD Medical Decision Making - ED course Complexity details: reviewed results, re-evaluated patient, considered diff erential, d/w patient ED course: No concerning nor diagnostic findings on EKG, CXR, blood tests including (normal) hs-cTn (2.9). Incidental note made of mild hyponatremia (132). Etiology of patient's symptoms not apparent at this time. Results d/w patient, return precautions reviewed, advised to f/u with PCP within 1 week for reevaluation. Departure - Departure Disposition: Home, Self Care Clinical Impression: Arm pain Condition: Good Instructions: ED Chest Pain Atypical Unkn Cause Comments: There were no concerning nor diagnostic findings on tonight's tests including EKG, chest x-ray, and blood tests. The cause of your arm pain is not apparent at this time. Follow-up with your primary care provider, next available appointment, for follow-up/reevaluation. Discharge Date/Time: 01/12/24 04:25
[2024-01-12 03:48] LABS: BASOPHILS % (AUTO) 0.7 %; EOSINOPHILS # (AUTO) 0.1 10^3/uL (0.0-0.7); EOSINOPHILS % (AUTO) 1.6 %; HCT - HEMATOCRIT 37.4 % (37.0-47.0); HGB - HEMOGLOBIN 12.4 g/dL (12.0-16.0); LYMPHOCYTES # (AUTO) 1.4 10^3/uL (1.5-3.5); MEAN CORPUSCULAR HEMOGLOBIN 31.2 pg (27.0-31.0); MEAN CORPUSCULAR HGB CONC 33.2 g/dL (32.0-36.0); MEAN CORPUSCULAR VOLUME 94.2 fL (81.0-99.0); MEAN PLATELET VOLUME 9.2 fL (7.9-10.8); MONOCYTES # (AUTO) 0.6 10^3/uL (0.0-1.0); MONOCYTES % (AUTO) 11.3 %; NEUTROPHILS # (AUTO) 3.4 10^3/uL (1.5-6.6); NEUTROPHILS % (AUTO) 60.9 %; PLT - PLATELET COUNT 264 10^3/uL (130-450); RED BLOOD COUNT 3.97 10^6/uL (4.20-5.40); RED CELL DISTRIBUTION WIDTH 13.3 % (12.0-15.0); WHITE BLOOD COUNT 5.6 x10^3/uL (4.8-10.8)
[2024-01-12 04:08] VITALS: BP 162/89
[2024-01-12 04:12] LABS: TROPONIN I HIGH SENSITIVITY 2.9 ng/L (2.3-14.8)
[2024-01-12 04:14] LABS: ALBUMIN 4.5 g/dL (3.2-5.5); ALBUMIN/GLOBULIN RATIO 1.6 (1.0-2.2); BILIRUBIN,TOTAL 0.3 mg/dL (0.2-1.0); CALCIUM 9.1 mg/dL (8.5-10.3); CREATININE 0.7 mg/dL (0.6-1.3); POTASSIUM 3.6 mmol/L (3.5-4.5); TOTAL PROTEIN 7.4 g/dL (6.4-8.9)
--- NOTE | 2024-01-12 07:49 | XRAY Report ---
PROCEDURE: Chest 1V INDICATIONS: Chest pain TECHNIQUE: One view of the chest was acquired. COMPARISON: None. FINDINGS: Surgical changes and devices: None. Lungs and pleura: No pleural effusions or pneumothorax. Lungs are clear. Mediastinum: Mediastinal contours appear normal. Heart size is normal. Bones and chest wall: No suspicious bony lesions. Overlying soft tissues appear unremarkable. IMPRESSION: No acute cardiopulmonary process. Findings are concordant with preliminary interpretation provided by [facility]. Reviewed by: Flako Hinojosa MD on 01/12/2024 7:48 AM PDT Approved by: Flako Hinojosa MD on 01/12/2024 7:48 AM PDT Station ID: [id number]
== END 2024-01-12 04:25 | disposition home or self-care (01) ==
LOC: ED 02:43
DX: M79.642 Pain in left hand (principal); M79.641 Pain in right hand; M79.602 Pain in left arm; R20.2 Paresthesia of skin
CPT/HCPCS: 36415; 80053; 83690; 84484; 85025; 93005; 99283; 99284

== ENCOUNTER 2024-03-06 10:54 | Outpatient (CLI) | payer MEDICARE, OTHER ==
--- NOTE | 2024-03-06 17:29 | XRAY Report ---
PROCEDURE: Shoulder 2+V RT INDICATIONS: R SHOULDER PAIN TECHNIQUE: 3 views of the shoulder were acquired. COMPARISON: None. FINDINGS: Bones: Mild acromioclavicular and glenohumeral degenerative changes. No acute displaced fracture or d islocation. Soft tissues: No suspicious calcifications. IMPRESSION: Mild degenerative changes. No acute radiographic abnormality. If there is high concern for further de rangement, consider MRI evaluation. Reviewed by: Papo Lara MD on 03/06/2024 5:28 PM PDT Approved by: Papo Lara MD on 03/06/2024 5:28 PM PDT Station ID: [id number]
== END 2024-03-06 10:55 | disposition home or self-care (01) ==
LOC: DI 10:54
PROVIDERS: ATTEND Internal Medicine
DX: M19.011 Primary osteoarthritis, right shoulder (principal)